=== PATIENT | male | born 1965 | race Two or more races ===

== ENCOUNTER 2022-11-17 15:59 | Emergency (ER) | payer OTHER ==
[~2022-11-17] VITALS: Ht 170.2 cm; Wt 102.1 kg
[2022-11-17] MEDS ORDERED: ZESTRIL2.5 MG PO (16:20)
[2022-11-17] MEDS ORDERED: TOPROL XL25 M1 PO (16:20)
== END 2022-11-17 22:14 | disposition home or self-care (01) ==
LOC: ER 15:59
DX: K61.0 Anal abscess (principal)

== ENCOUNTER → 2023-05-16 08:00 | Outpatient (CLI) | payer OTHER ==
[~2023-05-16] VITALS: Ht 170.2 cm; Wt 97.5 kg
[~2023-05-16 08:00] MED LIST: ATORVASTATIN CA20 MG PO; LIPITOR40 M1 PO; METROPROLOL; TOPROL XL25 M1 PO; ZESTRIL10 M1; ZESTRIL2.5 MG PO
== END | disposition home or self-care (01) ==
LOC: LAB 08:00 → ADM 12:15 → CIR.AMB 05-22 08:30 → EDSTATUS 05-22 12:15
PROVIDERS: ATTEND Colon & Rectal Surgery
DX: K61.2 Anorectal abscess (principal); I10 Essential (primary) hypertension

== ENCOUNTER 2023-07-17 10:33 | Day surgery (SDC) | payer OTHER ==
[2023-07-17] MEDS ORDERED: CEFTRIAXONE SODIUM 2,000 MG VIAL ONE (12:06)
[2023-07-17] MEDS ORDERED: METRONIDAZOLE/SODIUM CHLORIDE 500 MG/100 ML PIGGYBACK IV ONE ×2 (12:06→16:00)
[2023-07-17] MEDS ORDERED: BUPIVACAINE HCL/PF 0.5% 30ML ML ONE (15:19)
[2023-07-17] MEDS ORDERED: LIDOCAINE HCL 1%/Epi 20ML VIAL IJ ONE ×2 (15:20→16:00)
[2023-07-17] MEDS ORDERED: POVIDONE-IODINE 118 ML BOTT TOP ONE ×2 (15:20→16:15)
[2023-07-17] MEDS ORDERED: DIBUCAINE 15 GM OINT..GM. TUBE ONE (15:20)
[2023-07-17] MEDS ORDERED: HEMOSTATIC MATRIX 1 KIT KIT TOP ONE ×2 (15:46→16:00)
[2023-07-17] MEDS ORDERED: DIBUCAINE 15 GM OINT..GM. TUBE RECTAL ONE (16:00)
[2023-07-17] MEDS ORDERED: BUPIVACAINE HCL 30 ML VIAL IJ ONE (16:00)
[2023-07-17] MEDS ORDERED: CEFTRIAXONE SODIUM 2,000 MG VIAL IV ONE (16:00)
[2023-07-17] MEDS ORDERED: ONDANSETRON HCL 2 MG/ML VIAL ONE (19:44)
[2023-07-17] MEDS ORDERED: ONDANSETRON HCL 2 MG/ML VIAL IV ONE (19:50)
[2023-07-17] MEDS ORDERED: MORPHINE SULFATE 4 MG/ML VIAL IV ONE (19:50)
== END 2023-07-17 20:55 | disposition home or self-care (01) ==
LOC: CIR.AMB 10:33
PROVIDERS: ATTEND Colon & Rectal Surgery
DX: K60.3 Anal fistula (principal); E78.5 Hyperlipidemia, unspecified